=== PATIENT | male | born 1985 | race Caucasian/White ===

== ENCOUNTER 2024-06-25 12:22 | Inpatient (IN) | payer OTHER ==
[2024-06-25 12:41] VITALS: BMI 30.1
[2024-06-25] MEDS ORDERED: LOPERAMIDE HCL 2 MG CAPSULE PO PRN (13:12)
[2024-06-25] MEDS ORDERED: IBUPROFEN 400 MG TABLET (FP) PO PRN (13:12)
[2024-06-25] MEDS ORDERED: NICOTINE POLACRILEX 2 MG GUM BUC PRN (13:12)
[2024-06-25] MEDS ORDERED: NALOXONE (NARCAN) HCL 4 MG/0.1 ML SPRAY NS PRN (13:12)
[2024-06-25] MEDS ORDERED: NICOTINE POLACRILEX 2 MG LOZENGE BC PRN (13:12)
[2024-06-25] MEDS ORDERED: IBUPROFEN 600 MG TABLET (FP) PO PRN (13:12)
[2024-06-25] MEDS ORDERED: POLYETHYLENE GLYCOL (HEALTHYLAX) 3350 17 GM PACKET PO PRN (13:12)
[2024-06-25] MEDS ORDERED: guaiFENesin 600 MG TABLET.ER (FP) PO PRN (13:12)
[2024-06-25] MEDS ORDERED: BENZONATATE 200 MG CAPSULE PO PRN (13:12)
[2024-06-25] MEDS ORDERED: MAGNESIUM HYDROX 2400MG/30ML ORAL SUSPENSION 30 ML CUP PO PRN (13:12)
[2024-06-25] MEDS ORDERED: MAG HYDROX/AL HYDROX/SIMETH 30 ML UNIT-DOSE CUP PO PRN (13:12)
[2024-06-25] MEDS ORDERED: DOCUSATE SODIUM 100 MG CAPSULE (FP) PO PRN (13:12)
[2024-06-25] MEDS ORDERED: P-EPHED 60MG/TRIPROLIDI 2.5MG TABLET PO PRN (13:12)
[2024-06-25] MEDS ORDERED: BENZOCAINE/MENTHOL (CHLORASEPTIC ) LOZENGE MM PRN (13:12)
[2024-06-25] MEDS: propRANOLol HCL 10 MG TABLET PO ONE (15:16)
[2024-06-25] MEDS ORDERED: OLANZapine 2.5 MG TABLET PO PRN (16:19)
[2024-06-25] MEDS ORDERED: TOPIRAMATE 25 MG TABLET PO SCH (22:00)
[2024-06-25] MEDS ORDERED: MIRTAZAPINE 15 MG TABLET (FP) ONE (22:43)
[2024-06-25] MEDS: MIRTAZAPINE 30 MG TABLET PO SCH (22:44)
[2024-06-25] MEDS: TOPIRAMATE 25 MG TABLET PO SCH (22:44)
[2024-06-25] MEDS: MELATONIN 5 MG TABLETS PO SCH (22:45)
[2024-06-25] MEDS: THIAMINE 100 MG TABLET PO SCH (22:45)
[2024-06-25] MEDS: traZODone HCL 100 MG TABLET (FP) PO SCH (22:45)
[2024-06-26] MEDS: ACETAMINOPHEN 325 MG TABLET (FP) PO PRN (09:03)
[2024-06-26] MEDS ORDERED: BISMUTH SUBSALICYLATE 262 MG/15 ML BTL PO PRN (09:15)
[2024-06-26] MEDS ORDERED: METHOCARBAMOL 500 MG TABLET PO PRN (09:15)
[2024-06-26] MEDS ORDERED: ONDANSETRON *ODT* 4 MG TABLET SL PRN (09:15)
[2024-06-26] MEDS ORDERED: DICYCLOMINE HCL 10 MG CAPSULE PO PRN (09:15)
[2024-06-26] MEDS: PRENATAL VITAMINS W/ FOLIC ACID TABLET (FP) PO SCH (10:50)
[2024-06-26 11:11] LABS: POTASSIUM 3.5 mmol/L (3.5-5.1)
[2024-06-26 11:16] LABS: HEMATOCRIT 42.7 % (35.4-49); HEMOGLOBIN 14.2 GM/dL (11.7-16.9); MCH 28.7 pg (25.7-33.7); MCHC 33.3 g/dl (32.0-35.9); MEAN CELL VOLUME 86.2 fl (80-96); MEAN PLT VOLUME 9.8 fl (7.5-11.1); PLATELET COUNT 197 10^3/uL (134-434); RBC 4.95 M/mm3 (4.00-5.60); RDW 14.4 % (11.9-15.9); WHITE BLOOD COUNT 5.3 K/mm3 (4.0-10.0)
[2024-06-26 11:20] LABS: ALBUMIN 3.8 g/dl (3.4-5.0); BLOOD UREA NITROGEN 23.4 mg/dL (7-18)
[2024-06-26 11:23] LABS: CREATININE 1.3 mg/dL (0.55-1.3)
[2024-06-26 11:24] LABS: BILIRUBIN,TOTAL 1.3 mg/dL (0.2-1); TOT PROT 7.1 g/dl (6.4-8.2)
[2024-06-26 11:41] LABS: SYPHILIS W/ RPR CONF NON-REACTIVE (NONREACTIVE)
[2024-06-27 17:12] LABS: PH,URINE 8.5 (5.0-8.0); URINE APPEARANCE TURBID; URINE BILIRUBIN NEGATIVE (NEGATIVE); URINE COLOR YELLOW; URINE GLUCOSE (UA) NEGATIVE (NEGATIVE); URINE KETONE NEGATIVE (NEGATIVE); URINE LEUK ESTERASE NEGATIVE (NEGATIVE); URINE NITRITE NEGATIVE (NEGATIVE); URINE PROTEIN NEGATIVE (NEGATIVE); URINE UROBILINOGEN 0.2 mg/dL (0.2-1.0)
[2024-06-27] MEDS: TETRAHYDROZOLINE HCL EYE DROPS OU PRN (21:16)
[2024-07-02] MEDS: SELENIUM SULFIDE 2.25% 180 ML SHAMPOO TP SCH (18:01)
[2024-07-02] MEDS: HYDROCORTISONE 1% TOPICAL OINT 30 GM TUBE TP PRN (21:07)
[2024-07-06 07:27] VITALS: BP 112/69; PULSE 78; RESP 16; TEMP 97
== END 2024-07-06 15:35 | disposition home or self-care (01) | DRG 772 ==
LOC: YASAS 12:22 → Y3NR 14:27 → Y5N 06-26 11:17
PROVIDERS: ADMIT Psychiatry & Neurology Pain Medicine; ATTEND Psychiatry & Neurology Pain Medicine
PROC: HZ42ZZZ Group Counseling for Substance Abuse Treatment, Cognitive-Behavioral (ICD-10-PCS; principal; 2024-06-25)
DX: F15.20 Other stimulant dependence, uncomplicated (principal); F10.20 Alcohol dependence, uncomplicated; F17.210 Nicotine dependence, cigarettes, uncomplicated; F19.282 Other psychoactive substance dependence with psychoactive substance-induced sleep disorder; F19.24 Other psychoactive substance dependence with psychoactive substance-induced mood disorder; F32.9 Major depressive disorder, single episode, unspecified; L40.9 Psoriasis, unspecified
CPT/HCPCS: 36415; 71045-TC-FY; 80053; 80305; 80307; 81003; 85027; 86780; 86803; 87811; 93005; 93010

== ENCOUNTER 2024-12-16 16:32 | Inpatient (IN) | payer OTHER ==
[2024-12-16 16:56] VITALS: BMI 30.7
[2024-12-16] MEDS ORDERED: guaiFENesin 600 MG TABLET.ER (FP) PO PRN (17:44)
[2024-12-16] MEDS ORDERED: MAGNESIUM HYDROX 2400MG/30ML ORAL SUSPENSION 30 ML CUP PO PRN (17:44)
[2024-12-16] MEDS ORDERED: NICOTINE POLACRILEX 2 MG LOZENGE BC PRN (17:44)
[2024-12-16] MEDS ORDERED: NALOXONE (NARCAN) HCL 4 MG/0.1 ML SPRAY NS PRN (17:44)
[2024-12-16] MEDS ORDERED: LOPERAMIDE HCL 2 MG CAPSULE PO PRN (17:44)
[2024-12-16] MEDS ORDERED: BENZOCAINE/MENTHOL (CHLORASEPTIC ) LOZENGE MM PRN (17:44)
[2024-12-16] MEDS ORDERED: MAG HYDROX/AL HYDROX/SIMETH 30 ML UNIT-DOSE CUP PO PRN (17:44)
[2024-12-16] MEDS ORDERED: IBUPROFEN 400 MG TABLET (FP) PO PRN (17:44)
[2024-12-16] MEDS ORDERED: IBUPROFEN 600 MG TABLET (FP) PO PRN (17:44)
[2024-12-16] MEDS ORDERED: DICYCLOMINE HCL 10 MG CAPSULE PO PRN (17:44)
[2024-12-16] MEDS ORDERED: POLYETHYLENE GLYCOL (HEALTHYLAX) 3350 17 GM PACKET PO PRN (17:44)
[2024-12-16] MEDS ORDERED: ACETAMINOPHEN 325 MG TABLET (FP) PO PRN (17:44)
[2024-12-16] MEDS ORDERED: BENZONATATE 200 MG CAPSULE PO PRN (17:44)
[2024-12-16] MEDS ORDERED: ONDANSETRON *ODT* 4 MG TABLET SL PRN (17:44)
[2024-12-16] MEDS: traZODone HCL 100 MG TABLET (FP) PO ONE (22:14)
[2024-12-16] MEDS: MIRTAZAPINE 30 MG TABLET PO SCH (22:14)
[2024-12-16] MEDS: TOPIRAMATE 25 MG TABLET PO SCH (22:14)
[2024-12-16] MEDS: MELATONIN 5 MG TABLETS PO SCH (22:35)
[2024-12-16] MEDS: CLOBETASOL PROPIONATE 15 GM CREAM TP SCH (22:35)
[2024-12-16] MEDS: THIAMINE 100 MG TABLET PO SCH (22:35)
[2024-12-17] MEDS: NICOTINE 14 MG/24 HOURS TOPICAL PATCH TD SCH (10:23)
[2024-12-17] MEDS: PRENATAL VITAMINS W/ FOLIC ACID TABLET (FP) PO SCH (10:23)
[2024-12-17] MEDS: SELENIUM SULFIDE 2.25% 180 ML SHAMPOO TP SCH (10:42)
[2024-12-17 11:28] LABS: MCHC 32.4 g/dl (32.3-36.5); MEAN CELL VOLUME 88.4 fl (79.0-92.2); MEAN PLT VOLUME 13.0 fl (9.4-12.4); RDW 14.1 % (12.0-15.6)
[2024-12-17 11:51] LABS: CO2 28 mmol/L (21-32); GLUCOSE,RANDOM 113 mg/dL (74-106)
[2024-12-17 11:54] LABS: CREATININE 1.0 mg/dL (0.55-1.3); SGOT/AST 43 U/L (15-37); SGPT/ALT 73 U/L (13-61)
[2024-12-17 11:56] LABS: ALK PHOS 78 U/L (45-117); TOT PROT 5.8 g/dl (6.4-8.2)
[2024-12-17] MEDS: BISMUTH SUBSALICYLATE 524 MG/30 ML PO PRN (19:52)
[2024-12-17] MEDS: hydrOXYzine PAMOATE 25 MG CAPSULE (FP) PO PRN (22:22)
[2024-12-17] MEDS: TOPIRAMATE 25 MG TABLET PO SCH (22:23)
[2024-12-17] MEDS: MIRTAZAPINE 30 MG TABLET PO SCH (22:24)
[2024-12-17] MEDS: traZODone HCL 100 MG TABLET (FP) PO SCH (22:25)
[2024-12-20] MEDS: METHOCARBAMOL 500 MG TABLET PO PRN (22:35)
[2024-12-21 09:10] VITALS: RESP 16
[2024-12-21 13:09] VITALS: BP 106/60; PULSE 69; TEMP 98.2
== END 2024-12-21 13:55 | disposition other institution (70) | DRG 774 ==
LOC: YASAS 16:32 → Y6N 20:20
PROVIDERS: ADMIT Family Medicine; ATTEND Psychiatry & Neurology Pain Medicine
PROC: HZ2ZZZZ Detoxification Services for Substance Abuse Treatment (ICD-10-PCS; principal; 2024-12-16)
DX: F10.230 Alcohol dependence with withdrawal, uncomplicated (principal); F17.210 Nicotine dependence, cigarettes, uncomplicated; F32.A Depression, unspecified; F12.20 Cannabis dependence, uncomplicated; F14.20 Cocaine dependence, uncomplicated; F15.20 Other stimulant dependence, uncomplicated; L40.9 Psoriasis, unspecified; L21.0 Seborrhea capitis
CPT/HCPCS: 36415; 71045-TC-FY; 80053; 80305; 80307; 82803; 82962; 83605; 85025; 85027; 86780; 86803; 87389; 93005; 93010; 99285-25

== ENCOUNTER 2025-02-28 14:03 | Inpatient (IN) | payer OTHER ==
[2025-02-28 14:46] VITALS: BMI 28.7
[2025-02-28] MEDS ORDERED: DICYCLOMINE HCL 10 MG CAPSULE PO PRN (16:33)
[2025-02-28] MEDS ORDERED: IBUPROFEN 600 MG TABLET (FP) PO PRN (16:33)
[2025-02-28] MEDS ORDERED: BISMUTH SUBSALICYLATE 524 MG/30 ML PO PRN (16:33)
[2025-02-28] MEDS ORDERED: MAGNESIUM HYDROX 2400MG/30ML ORAL SUSPENSION 30 ML CUP PO PRN (16:33)
[2025-02-28] MEDS ORDERED: NICOTINE POLACRILEX 2 MG GUM BUC PRN (16:33)
[2025-02-28] MEDS ORDERED: ONDANSETRON *ODT* 4 MG TABLET SL PRN (16:33)
[2025-02-28] MEDS ORDERED: NALOXONE (NARCAN) HCL 4 MG/0.1 ML SPRAY NS PRN (16:33)
[2025-02-28] MEDS ORDERED: NICOTINE POLACRILEX 2 MG LOZENGE BC PRN (16:33)
[2025-02-28] MEDS ORDERED: hydrOXYzine PAMOATE 25 MG CAPSULE (FP) PO PRN (16:33)
[2025-02-28] MEDS ORDERED: IBUPROFEN 400 MG TABLET (FP) PO PRN (16:33)
[2025-02-28] MEDS ORDERED: POLYETHYLENE GLYCOL (HEALTHYLAX) 3350 17 GM PACKET PO PRN (16:33)
[2025-02-28] MEDS ORDERED: BENZONATATE 200 MG CAPSULE PO PRN (16:33)
[2025-02-28] MEDS ORDERED: LOPERAMIDE HCL 2 MG CAPSULE PO PRN (16:33)
[2025-02-28] MEDS ORDERED: guaiFENesin 600 MG TABLET.ER (FP) PO PRN (16:33)
[2025-02-28] MEDS ORDERED: MAG HYDROX/AL HYDROX/SIMETH 30 ML UNIT-DOSE CUP PO PRN (16:33)
[2025-02-28] MEDS ORDERED: BENZOCAINE/MENTHOL (CHLORASEPTIC ) LOZENGE MM PRN (16:33)
[2025-02-28] MEDS ORDERED: ACETAMINOPHEN 325 MG TABLET (FP) PO PRN (16:33)
[2025-02-28] MEDS ORDERED: METHOCARBAMOL 500 MG TABLET PO PRN (16:33)
[2025-02-28] MEDS: THIAMINE 100 MG TABLET PO SCH (22:25)
[2025-02-28] MEDS: MELATONIN 5 MG TABLETS PO SCH (22:26)
[2025-03-01 08:45] VITALS: BP 111/61; PULSE 69; RESP 16; TEMP 97.5
[2025-03-01 09:58] LABS: MCHC 32.4 g/dl (32.3-36.5); MEAN CELL VOLUME 88.5 fl (79.0-92.2); MEAN PLT VOLUME 11.7 fl (9.4-12.4); RDW 14.3 % (12.0-15.6)
[2025-03-01] MEDS: PRENATAL VITAMINS W/ FOLIC ACID TABLET (FP) PO SCH (10:20)
[2025-03-01 10:59] LABS: GLUCOSE,RANDOM 100 mg/dL (74-106); TOT PROT 6.2 g/dl (6.4-8.2)
[2025-03-01 11:00] LABS: CO2 26 mmol/L (21-32)
[2025-03-01 11:02] LABS: ALK PHOS 80 U/L (40-150)
[2025-03-01 11:04] LABS: SGPT/ALT 36 U/L (0-55)
[2025-03-01 11:05] LABS: CREATININE 1.07 mg/dL (0.55-1.3); SGOT/AST 42 U/L (5-34)
== END 2025-03-01 11:05 | disposition left against medical advice (07) | DRG 770 ==
LOC: YASAS 14:03 → Y6N 18:36
PROVIDERS: ADMIT Neuromusculoskeletal Medicine & OMM; ATTEND Allergy & Immunology
PROC: HZ2ZZZZ Detoxification Services for Substance Abuse Treatment (ICD-10-PCS; principal; 2025-02-28)
DX: F10.230 Alcohol dependence with withdrawal, uncomplicated (principal); F15.20 Other stimulant dependence, uncomplicated; F17.210 Nicotine dependence, cigarettes, uncomplicated
CPT/HCPCS: 36415; 80053; 80307; 85027; 86780